=== PATIENT | male | born 1970 | race Asian ===

== ENCOUNTER 2017-06-19 08:36 | Emergency (ER) | payer MEDICARE, OTHER ==
[~2017-06-19] VITALS: Ht 157.5 cm; Wt 51.7 kg
[~2017-06-19 08:36] MED LIST: ERYTHROMYCIN3.5 GM LEFT EYE
--- NOTE | 2017-06-19 08:52 | Emergency Room Report ---
History of Present Illness General Chief Complaint: Laceration Source: Caregiver Present Illness HPI This patient with Down syndrome and sustained a laceration to the top his head. He didn't see him fall but he does have falling episodes. The program services assistant thinks he might have hit his head against some bricks. Short time of not being observed. No obvious LOC. Baseline at this time. No sig bleeding. Last tetanus was 7 years ago Allergies: Coded Allergies: No Known Allergies (Unverified , 07/18/16) Patient History Limited by: medical condition Past Medical History: see triage record Social History: Denies: smoking, alcohol use, drug use Social History Narrative with program services assistant Reviewed Nursing Documentation: PMH: Agreed, PSxH: Agreed Nursing Documentation-PMH Past Medical History: No History, Except For Review of Systems All Other Systems: limited Physical Exam Vital Signs Date Time Temp Pulse Resp B/P (MAP) Pulse Ox O2 Delivery O2 Flow Rate FiO2 06/19/17 08:41 97.3 74 14 106/72 98 Room Air Sp02 EP Interpretation: reviewed, normal General Appearance: well appearing, no apparent distress, other - short stature Head: normocephalic, other - scalp lac Eyes: bilateral eye normal inspection, bilateral eye PERRL, bilateral eye other - epicanthal folds ENT: hearing grossly normal, moist mucus membranes - hypergnathia Neck: full range of motion, supple Respiratory: no respiratory distress Cardiovascular #1: regular rate, rhythm Musculoskeletal: no calf tenderness Neurologic: alert, motor strength/tone normal, DTRs symmetric, sensory intact, normal gait Psychiatric: mood/affect normal Skin: laceration - scalp Procedures Laceration/Wound Repair Laceration/Wound Repair : Consent: Verbal Wound Location: head Wound's Depth, Shape: superficial Wound Length (cm): 4 Wound Explored: clean Anesthesia: Lidocaine w/ Epi Wound Debrided: none Wound Repaired With: maggie Layer Closure?: No Sterile Dressing Applied?: No - bacitracin Patient Tolerated: Well Complications: None Medical Decision Making Diagnostic Impression: Primary Impression: Laceration Additional Impression: Down syndrome ER Course Patient presents with a laceration to the scalp. Heat Transfer Technician unclear how this occurred. The program services assistant denies seizure disorder. He does have falling episodes and it's believed that he fell against some bricks. The lacerated needs to be repaired. According to the program services assistant he is at baseline. No CT indicated. Patient tolerated maggie well. Discussed head injury care with program services assistant. Patient stable for outpatient observation and treatment. Last Vital Signs Date Time Temp Pulse Resp B/P (MAP) Pulse Ox O2 Delivery O2 Flow Rate FiO2 06/19/17 09:18 77 17 110/76 99 Room Air 06/19/17 08:41 97.3 Status: improved Disposition: HOME, SELF-CARE Condition: Improved Scripts Bacitracin (Bacitracin) 28.4 Gm Oint...g. 1 APPLIC TOPIC BID, #10 GM Prov: Phil Garcia M.D. 06/19/17 Phil Garcia M.D. Jun 19, 2017 08:52
[2017-06-19] MEDS ORDERED: Lidocaine 1% 10mg/ml/Epi 0.005mg/ml 30ml vial INJ ONE (09:00)
[2017-06-19] MEDS ORDERED: Bacitracin Oint UD TOPIC ONE (09:00)
[2017-06-19] MEDS ORDERED: BACITRACIN15 GM TOPIC (09:10)
[2017-06-19 09:18] VITALS: BP 110/76
== END 2017-06-19 09:24 | disposition home or self-care (01) ==
LOC: EMR 08:58
DX: S01.91XA Laceration without foreign body of unspecified part of head, initial encounter (principal); W19.XXXA Unspecified fall, initial encounter; Y93.9 Activity, unspecified; Y99.9 Unspecified external cause status; Q90.9 Down syndrome, unspecified
CPT/HCPCS: 99284

== ENCOUNTER 2017-06-28 07:00 | Emergency (ER) | payer MEDICARE, OTHER ==
[~2017-06-28] VITALS: Ht 157.5 cm; Wt 52.6 kg
[~2017-06-28 07:00] MED LIST changes: +BACITRACIN15 GM TOPIC
--- NOTE | 2017-06-28 07:29 | Emergency Room Report ---
History of Present Illness General Chief Complaint: Wound Recheck/Suture Removal Source: Caregiver Present Illness HPI Patient presents with caregiver for evaluation of maggie The maggie were placed on June 19 Patient has been doing well Youth Nutritional Monitor reports that he does scratch at the area fairly heavily Otherwise no complaints of discharge or pain Patient's history is somewhat limited secondary to his mental status with baseline Down syndrome Allergies: Coded Allergies: No Known Allergies (Unverified , 07/18/16) Patient History Limited by: medical condition Pertinent Family History: none Reviewed Nursing Documentation: PMH: Agreed, PSxH: Agreed Nursing Documentation-PMH Past Medical History: No History, Except For Review of Systems All Other Systems: limited - Other than the ones mentioned in the history of present illness all others are reviewed however they do stay limited due to the patient's mental status Physical Exam Vital Signs Date Time Temp Pulse Resp B/P (MAP) Pulse Ox O2 Delivery O2 Flow Rate FiO2 06/28/17 07:09 97.2 50 20 111/73 93 Room Air Sp02 EP Interpretation: reviewed, normal General Appearance: well appearing, no apparent distress Head: normocephalic Eyes: bilateral eye PERRL, bilateral eye EOMI ENT: normal pharynx Respiratory: lungs clear, normal breath sounds Cardiovascular #1: regular rate, rhythm Musculoskeletal: normal inspection Neurologic: responsive Skin: other - Maggie in place at the top parietal region of the scalp, scab formation is noted no obvious hematoma Lymphatic: no adenopathy Procedures Laceration/Wound Repair Laceration/Wound Repair : Consent: Verbal Wound Location: head Patient Tolerated: Well Complications: None Progress Staple removal: Performed using the usual instrumentation, 4 maggie are removed, one from the front aspect of the laceration, 3 from the posterior aspect, patient tolerated the procedure well There is still healing process at the central point of the laceration, and therefore 2 maggie were left in place to prevent dehiscence Medical Decision Making Diagnostic Impression: Primary Impression: Encounter for wound re-check Additional Impression: staple removal ER Course Partial removal of maggie were performed as noted any procedural note Patient did well and will require repeat evaluation for removal of the final maggie Last Vital Signs Date Time Temp Pulse Resp B/P (MAP) Pulse Ox O2 Delivery O2 Flow Rate FiO2 06/28/17 07:09 97.2 50 20 111/73 93 Room Air Status: improved Disposition: HOME, SELF-CARE Condition: Improved Patient Instructions: Wound Closure Removal, Wound Check Additional Instructions: 2 maggie are still left in place as there is still healing process ongoing These will need to be removed in the next 7 days Please return for removal in 5-7 days, JUMA SIMS D.O. Jun 28, 2017 07:29
[2017-06-28 07:34] VITALS: BP 111/73
[2017-06-28 07:35] VITALS: BP 111/73
== END 2017-06-28 07:40 | disposition home or self-care (01) ==
LOC: EMR 07:15
DX: S01.01XD Laceration without foreign body of scalp, subsequent encounter (principal); X58.XXXD Exposure to other specified factors, subsequent encounter; Z48.02 Encounter for removal of sutures
CPT/HCPCS: 99281

== ENCOUNTER 2017-07-03 05:20 | Emergency (ER) | payer MEDICARE, OTHER ==
[~2017-07-03] VITALS: Ht 157.5 cm; Wt 51.7 kg
--- NOTE | 2017-07-03 05:34 | Emergency Room Report ---
History of Present Illness General Chief Complaint: Wound Recheck/Suture Removal Source: Patient Present Illness HPI Patient 47-year-old male who presented for a wound check. The patient had prior staple of scalp wound after a minor head trauma. The patient been at his baseline mental status. Patient prior history of Down syndrome. The patient brought in by caregiver history markedly limited by patient's mental status. Allergies: Coded Allergies: No Known Allergies (Unverified , 07/18/16) Patient History Reviewed Nursing Documentation: PMH: Agreed, PSxH: Agreed Review of Systems All Other Systems: limited - by mental status Physical Exam Vital Signs Date Time Temp Pulse Resp B/P (MAP) Pulse Ox O2 Delivery O2 Flow Rate FiO2 07/03/17 05:22 98.2 58 18 113/75 98 Room Air General Appearance: well appearing, no apparent distress Head: other - healing laceration ENT: hearing grossly normal, normal voice Neck: full range of motion, supple Respiratory: no respiratory distress, speaking full sentences Musculoskeletal: no calf tenderness Neurologic: alert, responsive, motor strength/tone normal, normal gait Psychiatric: mood/affect normal Skin: no rash, other - healing laceraton Medical Decision Making Diagnostic Impression: Primary Impression: Removal of maggie ER Course Patient presented for wound check. Differential diagnosis included was not limited to infected wound, nonhealed wound, neuroma, healed wound. [place] removed. The patient's caregiver was advised the patient followup as needed. Last Vital Signs Date Time Temp Pulse Resp B/P (MAP) Pulse Ox O2 Delivery O2 Flow Rate FiO2 07/03/17 05:22 98.2 58 18 113/75 98 Room Air Status: improved Disposition: HOME, SELF-CARE Condition: Stable Patient Instructions: Wound Closure Removal Obdulio Sevilla Jul 03, 2017 05:34
[2017-07-03 05:37] VITALS: BP 113/75
== END 2017-07-03 05:40 | disposition home or self-care (01) ==
LOC: EMR 05:31
DX: Z48.02 Encounter for removal of sutures (principal)
CPT/HCPCS: 99281

== ENCOUNTER 2019-09-06 10:25 | Emergency (ER) | payer MEDICARE, MEDICAID ==
[~2019-09-06] VITALS: Ht 160 cm; Wt 52.6 kg
[2019-09-06 10:30] VITALS: BP 121/83
[2019-09-06 12:59] VITALS: BP 135/89
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
== END 2019-09-06 12:59 | disposition home or self-care (01) ==
LOC: EMR 11:21
DX: S05.11XA Contusion of eyeball and orbital tissues, right eye, initial encounter (principal); S09.90XA Unspecified injury of head, initial encounter; Q90.9 Down syndrome, unspecified; X58.XXXD Exposure to other specified factors, subsequent encounter
CPT/HCPCS: 99282